=== PATIENT | male | born 1995 | race Caucasian/White ===

== ENCOUNTER → 2019-06-22 10:12 | Outpatient (CLI) | payer OTHER, SELFPAY ==
--- NOTE | ~2019-06-22 | CT_ITS ---
EXAMINATION: CT abdomen pelvis wo/w con DATE: 06/22/2019 11:01 INDICATION: Microscopic hematuria TECHNIQUE: Computed tomography (CT) of the abdomen and pelvis was performed without and subsequently with 130 cc Omnipaque 350 intravenous contrast. Automated exposure control and iterative reconstructi on technique were employed. Exam dose: 983.61 mGy-cm total exam DLP. COMPARISON: None. FINDINGS: The lung bases are clear. Normal heart size. No pericardial or pleural effusion. The liver, spleen, pancreas are unremarkable. The gallbladder is normal. No bile duct or pancreatic d uct dilatation. Normal adrenal glands. No renal mass lesion or scarring. No urinary tract calculus or hydroureteronephrosis. No filling defe ct of the renal collecting systems, ureters or urinary bladder. Normal prostate gland and seminal ves icles. Normal caliber of the abdominal aorta. No intraperitoneal or retroperitoneal or pelvic mass lesion or adenopathy or ascites. No bowel obstruction or intraperitoneal free air. Included skeletal structures are unremarkable. IMPRESSION: No cause for hematuria identified No significant abnormality Reviewed, dictated and finalized at [facility]. Reviewed, dictated and finalized at [facility]. [employer] HEL[employer]
--- NOTE | ~2019-06-22 | XR_ITS ---
EXAMINATION: XR abdomen/kub 1V DATE: 06/22/2019 11:01 INDICATION: Microscopic hematuria. TECHNIQUE: A supine view of the abdomen on 2 radiographs was obtained. COMPARISON: CT abdomen and pelvis 06/22/2019 FINDINGS: There are no dilated loops of bowel. There is no urolithiasis. IMPRESSION: 1. No urolithiasis. Reviewed, dictated and finalized at [facility]. [employer] ATTENDANT IMPRESSION: 1. No urolithiasis.
== END ==
PROVIDERS: PCP Family Medicine Adolescent Medicine; Visit Provider Urology
DX: R31.29 Other microscopic hematuria (principal)
CPT/HCPCS: 74018; 74178; Q9967